=== PATIENT | female | born 1985 | race Caucasian/White ===

== ENCOUNTER 2023-12-12 20:52 | Emergency (ER) | payer OTHER, MEDICAID, SELFPAY ==
[2023-12-12 20:54] VITALS: BP 139/106; PULSE 104; RESP 16; TEMP 36.4; O2SAT 98; BMI 29.7
[2023-12-12 21:00] VITALS: BP 139/106; PULSE 107; RESP 16; TEMP 36.4; O2SAT 99
--- NOTE | 2023-12-12 21:05 | RAD_ITS ---
STUDY: X-RAY - LEFT KNEE REASON FOR EXAM: Female, 38 years old. INJURY TECHNIQUE: 4 view(s) of the knee. COMPARISON: None. FINDINGS: Normal visualized distal femur. Normal visualized proximal tibia and fibula. Normal proximal tibiofibular articulation. There is no demonstrated fracture. Normal medial femorotibial compartment. Normal lateral femorotibial compartment. Normal patellofemoral articulation. There is no demonstrated joint effusion. The soft tissue structures are unremarkable. RAD/Knee 4 or More Views IMPRESSION: Normal x-ray examination of the knee. Electronically Signed: Ruslan Wheeler MD at 21:41 EDT ,
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
[2023-12-12 22:52] VITALS: BP 131/92; PULSE 77; RESP 18; TEMP 36.6; O2SAT 100
== END 2023-12-12 22:58 | disposition home or self-care (01) ==
PROVIDERS: Emergency Provider Student in an Organized Health Care Education/Training Program; Visit Provider Student in an Organized Health Care Education/Training Program
DX: S83.92XA Sprain of unspecified site of left knee, initial encounter (principal); F17.210 Nicotine dependence, cigarettes, uncomplicated; X58.XXXA Exposure to other specified factors, initial encounter
CPT/HCPCS: 73564; 99282